=== PATIENT | female | born 1980 | race Caucasian/White ===

== ENCOUNTER 2023-04-01 12:35 | Emergency (ER) | payer MEDICAID ==
[~2023-04-01] VITALS: Ht 160 cm; Wt 260.4 kg
[~2023-04-01 12:35] MED LIST: NORG1TAB PO
[2023-04-01 13:01] LABS: COVID AG,FIA SOURCE NASAL SWAB
[2023-04-01 13:10] LABS: BASOPHILS % (AUTO) 0.3 % (0.0-2.0); EOSINOPHILS % (AUTO) 0 % (1.0-6.0); HEMOGLOBIN 12.5 g/dL (12.0-16.0); LYMPHOCYTES # (AUTO) 1.1 K/uL (1.0-4.8); MEAN CORPUSCULAR HEMOGLOBIN 23.5 pg (26.0-34.0); MEAN CORPUSCULAR HGB CONC 32.8 G/dL (31.0-37.0); MEAN CORPUSCULAR VOLUME 72 fL (80-100); MONOCYTES # (AUTO) 0.7 K/uL (0.1-1.0); MONOCYTES % (AUTO) 9.7 % (2.0-9.0); PLATELET COUNT (AUTO) 297 K/uL (150-450); RED CELL DISTRIBUTION WIDTH 18.9 % (11.5-14.5); WHITE BLOOD COUNT (AUTO) 6.8 K/uL (4.5-11.0)
[2023-04-01 13:19] LABS: ANION GAP 12 mmol/L (8-16); CALCIUM, TOTAL 8.4 mg/dL (8.8-10.5); CARBON DIOXIDE 24 mmol/L (22-29); CHLORIDE 102 mmol/L (98-107); CREATININE 0.69 mg/dL (0.60-1.30); GLOMERULAR FILTR. RATE CALC > 60 mL/min (>60); GLUCOSE,RANDOM 120 mg/dL (70-110); SODIUM SERUM 138 mmol/L (136-145); UREA NITROGEN, BLOOD 6 mg/dL (7-18)
[2023-04-01 13:25] LABS: ALANINE AMINOTRANSFERASE 38 U/L (12-78); ALBUMIN 3.5 g/dL (3.4-5.0); ALKALINE PHOSPHATASE 134 U/L (46-116); ASPARTATE AMINOTRANSFERASE 32 U/L (15-37); BILIRUBIN,TOTAL 0.3 mg/dL (0.1-1.0); TOTAL PROTEIN, SERUM 7.6 g/dL (6.4-8.2)
[2023-04-01 13:28] LABS: TROPONIN I-HIGH SENSITIVITY 19 ng/L (<51)
[2023-04-01 13:33] LABS: INFLUENZA TYPE B NEGATIVE FOR TYPE B (NEGATIVE); SARS-COV2 (COVID) ANTIGEN,FIA Negative (Negative)
[2023-04-01 13:39] LABS: INFLUENZA TYPE A POSITIVE FOR TYPE A (NEGATIVE)
[2023-04-01 13:55] LABS: RBC MORPHOLOGY COMMENT ABNORMAL RBC MORPH
[2023-04-01 14:52] VITALS: BP 147/60; PULSE 110; RESP 18; TEMP 98.8
[2023-04-01] MEDS ORDERED: OSEL75 PO (14:53)
[2023-04-01] MEDS ORDERED: BENZ-227 PO (14:53)
== END 2023-04-01 15:15 | disposition home or self-care (01) ==
LOC: EMS 12:35
DX: J10.1 Influenza due to other identified influenza virus with other respiratory manifestations (principal); Z88.0 Allergy status to penicillin; Z20.822 Contact with and (suspected) exposure to COVID-19
CPT/HCPCS: 71045; 80053; 84484; 84703; 85025; 87804; 93005; 99285; 36415-L1; 36415-TC

== ENCOUNTER 2024-11-15 13:01 | Inpatient (IN) | payer MEDICAID, OTHER ==
[~2024-11-15] VITALS: Ht 165.1 cm; Wt 117.0 kg
[~2024-11-15 13:01] MED LIST changes: +BENZ-227 PO; -NORG1TAB PO; +OSEL75CA45 PO
[2024-11-15 13:46] LABS: PLATELET COUNT (AUTO) 376 K/uL (150-450); RED BLOOD CELL COUNT(AUTO) 5.51 MIL/uL (4.00-5.20); RED CELL DISTRIBUTION WIDTH 15.2 % (11.5-14.5); WHITE BLOOD COUNT (AUTO) 11.1 K/uL (4.5-11.0)
[2024-11-15 13:48] LABS: RBC MORPHOLOGY COMMENT ABNORMAL RBC MORPH
[2024-11-15 13:49] LABS: APPEARANCE,URINE CLEAR (CLEAR); GLUCOSE, URINE (UA) NEGATIVE (NEGATIVE); LEUKOCYTE ESTERASE ,URINE MODERATE (NEGATIVE); NITRATE,URINE NEGATIVE (NEGATIVE); OCCULT BLOOD,URINE NEGATIVE (NEGATIVE); SPECIFIC GRAVITIY, URINE 1.019 (1.003-1.030)
[2024-11-15 13:51] LABS: CALCIUM, TOTAL 8.9 mg/dL (8.8-10.5); CREATININE 0.75 mg/dL (0.60-1.30); GLOMERULAR FILTR. RATE CALC > 60 mL/min (>60); GLUCOSE,RANDOM 102 mg/dL (70-110); SODIUM SERUM 138 mmol/L (136-145); UREA NITROGEN, BLOOD 7 mg/dL (7-18)
[2024-11-15 14:04] LABS: HCG,QUANTITATIVE 3 mIU/mL (0-6)
[2024-11-15 14:09] LABS: SQUAMOUS EPITHELIAL CELL,UR Few /LPF (None Seen)
[2024-11-15 14:25] LABS: ASPARTATE AMINOTRANSFERASE 20.0 U/L (15-37); TOTAL PROTEIN, SERUM 7.7 g/dL (6.4-8.2)
[2024-11-15] MEDS: METOCLOPRAMIDE HCL 5 MG/ML 2 ML VIAL IVP ONE (15:53)
[2024-11-15] MEDS: FAMOTIDINE 20 MG/2 ML VIAL IVP ONE (15:54)
[2024-11-15] MEDS ORDERED: MORPHINE SULFATE 4 MG/ML SYRINGE IVP PRN (17:45)
[2024-11-15] MEDS: DEXTROSE 5%-LACTATED RINGERS 1,000 ML IV SCH (18:05)
[2024-11-15 18:44] LABS: LACTIC ACID 0.8 mmol/L (0.4-2.0)
[2024-11-15] MEDS: MetroNIDAZOLE 500 MG/NACL 100 ML IV SCH (18:48)
[2024-11-15] MEDS: CefTRIAXone 1 GM/DEXTROSE 50 ML IV ONE (18:49)
[2024-11-15 21:48] VITALS: BP 139/89; PULSE 76; RESP 17; TEMP 97.7; O2SAT 98
[2024-11-15] MEDS: MORPHINE SULFATE 2 MG/ML SYRINGE IVP PRN (21:56)
[2024-11-15 23:56] VITALS: BP 141/80; PULSE 86; RESP 17; TEMP 97.9; O2SAT 96
[2024-11-16] MEDS ORDERED: SODIUM CHLORIDE 0.9% 500 ML IV ONE (01:12)
[2024-11-16] MEDS: ONDANSETRON HCL 4 MG/2 ML VIAL IVP PRN (03:43)
[2024-11-16 04:00] VITALS: BP 118/70; PULSE 78; RESP 16; TEMP 97.5; O2SAT 98
[2024-11-16 06:27] LABS: PLATELET COUNT (AUTO) 303 K/uL (150-450); RED BLOOD CELL COUNT(AUTO) 4.73 MIL/uL (4.00-5.20); RED CELL DISTRIBUTION WIDTH 15.1 % (11.5-14.5); WHITE BLOOD COUNT (AUTO) 9.2 K/uL (4.5-11.0)
[2024-11-16 06:56] LABS: CALCIUM, TOTAL 8.2 mg/dL (8.8-10.5); CREATININE 0.64 mg/dL (0.60-1.30); GLOMERULAR FILTR. RATE CALC > 60 mL/min (>60); GLUCOSE,RANDOM 92 mg/dL (70-110); SODIUM SERUM 140 mmol/L (136-145); UREA NITROGEN, BLOOD 6 mg/dL (7-18)
[2024-11-16 07:20] VITALS: BP 116/53; PULSE 80; RESP 18; TEMP 98.1; O2SAT 95
[2024-11-16] MEDS: PANTOPRAZOLE SODIUM 40 MG/VIAL IVP SCH (08:22)
[2024-11-16 11:15] VITALS: BP 114/53; PULSE 82; RESP 19; TEMP 98; O2SAT 96
[2024-11-16 14:30] VITALS: BP 144/87; PULSE 85; RESP 19; TEMP 98.1; O2SAT 0
[2024-11-16 19:39] VITALS: BP 133/66; PULSE 82; RESP 20; TEMP 98.4; O2SAT 96
[2024-11-17 03:48] VITALS: BP 143/80; PULSE 69; RESP 20; TEMP 98.1; O2SAT 96
[2024-11-17 05:30] LABS: GLUCOMETER DEV NAME(LOC) 6S.2; GLUCOSE,POINT OF CARE 87 MG/DL (70-110)
[2024-11-17 05:54] LABS: PLATELET COUNT (AUTO) 292 K/uL (150-450); RED BLOOD CELL COUNT(AUTO) 4.50 MIL/uL (4.00-5.20); RED CELL DISTRIBUTION WIDTH 14.8 % (11.5-14.5); WHITE BLOOD COUNT (AUTO) 8.6 K/uL (4.5-11.0)
[2024-11-17 06:54] LABS: ASPARTATE AMINOTRANSFERASE 18 U/L (15-37); CALCIUM, TOTAL 8.1 mg/dL (8.8-10.5); CREATININE 0.62 mg/dL (0.60-1.30); GLOMERULAR FILTR. RATE CALC > 60 mL/min (>60); GLUCOSE,RANDOM 93 mg/dL (70-110); SODIUM SERUM 137 mmol/L (136-145); TOTAL PROTEIN, SERUM 6.1 g/dL (6.4-8.2); UREA NITROGEN, BLOOD 4 mg/dL (7-18)
[2024-11-17 08:47] VITALS: BP 124/62; PULSE 84; RESP 20; TEMP 97.9; O2SAT 96
[2024-11-17] MEDS: CHLORHEXIDINE GLUCONATE 2% TOWELETTE [2'S/6'S] TP ONE (09:36)
[2024-11-17] MEDS: ETHYL ALCOHOL 62% ANTISEPTIC NASAL SANITIZER 0.6 ML AMPUL NASAL ONE (09:36)
[2024-11-17] MEDS: RINGERS SOLUTION,LACTATED 1,000 ML IV ONE (09:43)
[2024-11-17] MEDS ORDERED: POTASSIUM CHL 10 MEQ/WATER 50 ML IV PRN (10:15)
[2024-11-17] MEDS ORDERED: RINGERS SOLUTION,LACTATED 1,000 ML IV ONE (12:02)
[2024-11-17] MEDS: BUPIVACAINE 0.25%/EPI 1:200,000/PF 30 ML VIAL ONE (12:39)
[2024-11-17 13:55] VITALS: BP 148/83; PULSE 96; RESP 18; TEMP 97.3; O2SAT 96
[2024-11-17] MEDS ORDERED: FentaNYL CITRATE PF 100 MCG/2 ML VIAL ONE (15:56)
[2024-11-17] MEDS ORDERED: MIDAZOLAM HCL 2 MG/2 ML VIAL ONE (15:56)
[2024-11-17 20:00] VITALS: BP 145/76; PULSE 96; RESP 18; TEMP 99.1; O2SAT 95
[2024-11-17] MEDS ORDERED: SODIUM CHLORIDE 0.9% 500 ML IV ONE (20:28)
[2024-11-18 05:00] VITALS: BP 120/70; PULSE 95; RESP 17; TEMP 98.8; O2SAT 96
[2024-11-18 08:42] VITALS: BP 125/76; PULSE 91; RESP 18; TEMP 97.9; O2SAT 95
[2024-11-18] MEDS: POTASSIUM CHLORIDE 20 MEQ ER TABLET PO PRN (09:16)
[2024-11-18 15:28] VITALS: BP 133/84; PULSE 89; RESP 18; TEMP 98.1; O2SAT 99
[2024-11-18 19:39] VITALS: BP 132/80; PULSE 89; RESP 18; TEMP 98.2; O2SAT 97
[2024-11-19 04:59] VITALS: BP 132/89; PULSE 90; RESP 18; TEMP 97.9; O2SAT 97
[2024-11-19 08:31] VITALS: BP 139/89; PULSE 80; RESP 18; TEMP 97.9; O2SAT 98
[2024-11-19] MEDS ORDERED: DOCU-385 PO (09:53)
[2024-11-19] MEDS ORDERED: ROCURONIUM BROMIDE 10 MG/ML 5 ML VIAL IVP ONE (13:29)
[2024-11-19] MEDS ORDERED: GLYCOPYRROLATE 0.2 MG/ML VIAL IM ONE (13:29)
[2024-11-19] MEDS ORDERED: DEXAMETHASONE SOD PHOS 4 MG/ML VIAL IVP ONE (13:29)
[2024-11-19] MEDS ORDERED: METOCLOPRAMIDE HCL 5 MG/ML 2 ML VIAL IVP ONE (13:29)
[2024-11-19] MEDS ORDERED: ONDANSETRON HCL 4 MG/2 ML VIAL IVP ONE (13:29)
[2024-11-19] MEDS ORDERED: PROPOFOL 1% 20 ML VIAL IVP ONE (13:29)
[2024-11-19] MEDS ORDERED: SUGAMMADEX SODIUM 200 MG/2 ML VIAL IVP ONE (13:29)
== END 2024-11-19 13:30 | disposition home or self-care (01) | DRG 263 ==
LOC: EMS 13:05 → EDH 17:45 → 5S 21:36 → 6S 11-16 11:15
PROVIDERS: ADMIT Internal Medicine; ATTEND Internal Medicine
PROC: 0FT44ZZ Resection of Gallbladder, Percutaneous Endoscopic Approach (ICD-10-PCS; principal; 2024-11-17 15:30)
DX: K80.00 Calculus of gallbladder with acute cholecystitis without obstruction (principal); K65.9 Peritonitis, unspecified; K82.1 Hydrops of gallbladder; E66.01 Morbid (severe) obesity due to excess calories; I10 Essential (primary) hypertension; K66.0 Peritoneal adhesions (postprocedural) (postinfection); Z88.0 Allergy status to penicillin; Z68.41 Body mass index [BMI] 40.0-44.9, adult; Z79.899 Other long term (current) drug therapy
CPT/HCPCS: 74181; 76705; 80048; 80053; 80076; 81001; 82962; 83605; 83690; 83735; 84132; 84702; 85025; 87040; 87081; 87086; 96374; 96375; 99285; J0360; J0696; J1100; J2250; J2270; J2405; J2470; J2704; J2765; J3010; J3490; J7040; J7120